=== PATIENT | female | born 1950 | race Caucasian/White ===

== ENCOUNTER 2020-03-11 08:04 | Outpatient (NON) | payer MEDICARE, SELFPAY ==
[2020-03-11 17:33] LABS: SARS-CoV-2 RNA PCR Negative
== END 2020-03-11 08:05 ==
PROVIDERS: PCP Family Medicine; Visit Provider Family Medicine
DX: R68.89 Other general symptoms and signs (principal); Z20.822 Contact with and (suspected) exposure to COVID-19
CPT/HCPCS: C9803; U0003; U0005

== ENCOUNTER 2021-11-07 05:47 | Emergency (ER) | payer MEDICARE, SELFPAY ==
--- NOTE | ~2021-11-07 | XR_ITS ---
EXAMINATION: XR chest 2V 11/07/2021 08:12 INDICATION: Weakness. Syncope. PROCEDURE: PA and lateral views of the chest COMPARISON: No prior studies for comparison. FINDINGS: The lungs are clear. The cardiomediastinal silhouette is within normal limits. There are no pleural effusions. There is no pneumothorax suspected. IMPRESSION: 1: NO ACUTE CARDIOPULMONARY DISEASE. Reviewed, dictated and finalized at location A.
[2021-11-07 06:02] VITALS: BP 157/92; PULSE 92; RESP 20; TEMP 36.9; O2SAT 100
--- NOTE | 2021-11-07 07:23 | ECG_ITS ---
Measurements Intervals [place] Rate: 75 P: 53 OH: 122 QRS: 9 QRSD: 85 T: 26 QT: 381 QTc: 428 Interpretive Statements SINUS RHYTHM ATRIAL PREMATURE COMPLEX BORDERLINE T WAVE ABNORMALITY- ANTERIOR LEADS BASELINE ARTIFACT- I, II, III, AVL, AVF, V1-V3 BORDERLINE ECG NO PREVIOUS ECG AVAILABLE FOR COMPARISON Electronically Signed On 11-07-2021 8:18:15 CDT by Thor Valencia D.O.
--- NOTE | 2021-11-07 07:40 | PC.NURSE ---
pt states she just went to the bathroom and is unable to provide a urine sample at this time.
--- NOTE | 2021-11-07 07:46 | ED.GENADULT ---
HPI - General Adult General Chief complaint: Extremity Injury, Lower Stated complaint: Fall yesterday, right leg pain Time Seen by Provider: 11/07/21 06:56 History of Present Illness HPI narrative: Patient is a 71-year-old female who presents ER to be evaluated for achiness in her right lower extremity. She reports she went to put on some socks this morning and felt a pain. It hurts with palpation and with certain movements. She is able to ambulate. No radiation. Patient reports last night she was in her kitchen when she got dizzy and almost passed out. She fell onto her buttock. She did not strike her head or lose consciousness. She thinks she injured her leg in the fall but does not member striking on anything. She does report that she has been having some dysuria. No chest pain or chest pressure. Do not feel racing of the heart. No history of arrhythmia. Related Data Allergies Allergy/AdvReac Type Severity Reaction Status Date / Time poison uriel extract Allergy Severe HIVES Verified 11/07/21 06:01 Tetanus Vaccines and Toxoid Allergy Severe HIVES Verified 11/07/21 06:01 prednisone Allergy Unknown Hives Verified 11/07/21 06:01 AVOX Allergy Severe SEVERE Uncoded 11/23/15 08:41 HIVES Review of Systems Review of Systems: All systems reviewed & are unremarkable except as noted in HPI and below Constitutional: Constitutional: Denies chills, Denies fatigue and Denies fever(s) ENT: Denies nasal congestion and Denies sore throat Cardiovascular: Cardiovascular: Denies chest pain, Denies rapid heart rate and Denies radiating jaw, neck or arm pain Respiratory: Respiratory: Denies cough and Denies dyspnea Gastrointestinal: Gastrointestinal: Denies abdominal pain, Denies nausea and Denies vomiting Musculoskeletal: Musculoskeletal: Denies arthralgias and Denies joint swelling Neurologic: Reports syncope (near syncope), Denies headache(s), Denies focal weakness and Denies numbness PMFSH Past Medical History Medical History (Updated 11/07/21 @ 09:22 by Lele Abdullahi MD) Healthy female adult Surgical History Surgical History (Updated 11/07/21 @ 07:57 by Lele Abdullahi MD) No history of previous surgery Social History Social History (Updated 11/07/21 @ 07:57 by Lele Abdullahi MD) Smoking status: Never smoker Exam Narrative: GENERAL: Well-appearing, well-nourished, and in no acute distress. HEAD: Normocephalic, atraumatic. EYES: PERRL and EOMI. ENT: Mucous membranes moist. CHEST: Clear to auscultation. No respiratory distress. HEART: Regular rate and rhythm. Normal peripheral pulses. ABDOMEN: Soft, nontender, nondistended. EXTREMITIES: Normal range of motion. No edema. Mild tenderness right lateral calf. SKIN: Warm, dry, no rash. NEURO: Alert and oriented x3. PSYCH: Normal mood and affect. Course Vital Signs Vital signs: Vital Signs Temperature 98.4 F 11/07/21 06:02 Pulse Rate 92 11/07/21 06:02 Respiratory Rate 20 11/07/21 06:02 Blood Pressure 157/92 H 11/07/21 06:02 Pulse Oximetry 100 11/07/21 06:02 Temperature 98.4 F 11/07/21 06:02 Pulse Rate 86 11/07/21 08:50 Respiratory Rate 18 11/07/21 08:04 Blood Pressure 181/100 H 11/07/21 08:50 Pulse Oximetry 97 11/07/21 08:04 Medical Decision Making Vital Signs Vital Signs: Vital Signs Temperature 98.4 F 11/07/21 06:02 Pulse Rate 92 11/07/21 06:02 Respiratory Rate 20 11/07/21 06:02 Blood Pressure 157/92 H 11/07/21 06:02 Pulse Oximetry 100 11/07/21 06:02 Temperature 98.4 F 11/07/21 06:02 Pulse Rate 86 11/07/21 08:50 Respiratory Rate 18 11/07/21 08:04 Blood Pressure 181/100 H 11/07/21 08:50 Pulse Oximetry 97 11/07/21 08:04 Lab Data Result diagrams: 11/07/21 07:43 11/07/21 07:43 Labs: Lab Results 11/07/21 11/07/21 11/07/21 Range/Units 07:43 07:43 08:45 WBC 5.7 (4.5-10.0) K/mm3 RBC 4.90 (4.2-5.4) M/mm3
--- NOTE | 2021-11-07 07:49 | PC.NURSE ---
Jane Called from Crisis and is requesting for chart to be faxed to [facility] in [place], [place] and [facility] in [place].
[2021-11-07 07:50] LABS: Basophils Percent Auto 0.3 % (0.2-1.2); Hematocrit 44.6 % (37.0-47.0); Hemoglobin 14.1 g/dL (12.0-15.0); Immature Granulocyte Absolute 0.02 K/mm3 (0.00-0.031); Immature Granulocyte Percent A 0.3 % (0-0.5); Immature Platelet Fraction Pct 3.6 % (0.9-11.2); Lymphocytes Absolute Auto 0.58 K/mm3 (0.9-3.2); Lymphocytes Percent Auto 10.1 % (18.3-44.2); Mean Corpuscular HGB Conc 31.6 g/dl (32-36); Mean Corpuscular Hemoglobin 28.8 pg (26-34); Mean Platelet Volume 11.1 fl (7.4-10.4); Monocytes Absolute Auto 0.7 K/mm3 (0.1-0.6); Monocytes Percent Auto 12.6 % (2.6-8.5); Neutrophils Absolute Auto 4.4 K/mm3 (1.3-6.7); Neutrophils Percent Auto 76.7 % (45.5-73.1); Platelet Count Result 122 k/mm3 (150-375); Red Cell Distribution Width 13.2 % (11.5-14.5); White Blood Count 5.7 K/mm3 (4.5-10.0)
[2021-11-07] MEDS: SODIUM CHLORIDE 0.9% IV 1,000 ML 999 ML IV CONT (07:59)
--- NOTE | 2021-11-07 08:01 | PC.NURSE ---
pt states she is not in any pain and is not wanting to take Tylenol.
[2021-11-07 08:04] VITALS: BP 157/63; PULSE 60; RESP 18; O2SAT 97
[2021-11-07 08:08] LABS: Anion Gap 10 mmol/L (8-16); Blood Urea Nitrogen 19 mg/dL (7-17); Calcium 9.1 mg/dL (8.4-10.2); Carbon Dioxide 26 mmol/L (22-30); Chloride 105 mmol/L (98-107); Estimated Glomerular Filt Rate 49; Glucose 113 mg/dL (65-110); Potassium 3.5 mmol/L (3.4-5.0); Sodium 141 mmol/L (137-145)
[2021-11-07 08:50] VITALS: BP 174/90; BP 176/80; BP 181/100; PULSE 77; PULSE 84; PULSE 86
[2021-11-07 08:59] LABS: Appearance Urine Slightly Cloudy (Clear); Bilirubin Urine Negative (Negative); Color Urine Yellow (Yellow); Glucose Urine UA Negative (Negative); Ketones Urine Negative (Negative); Leukocyte Esterase Ur 2+ LEU/UL (Negative); Nitrate Urine Positive (Negative); Protein Urine Negative (Negative); Urobilinogen Urine 0.2 mg/dL (<2.0)
[2021-11-07 09:02] LABS: Add Urine Microscopic? YES; Blood Urine Trace-Intact (Negative)
[2021-11-07 09:03] LABS: Bacteria Urine 2+ /hpf; Mucus Urine Few /lpf; Squamous Epithelial Cell Urine Occasional /hpf (Few); WBC Urine >75 /hpf
== END 2021-11-07 10:11 | disposition home or self-care (01) ==
PROVIDERS: Emergency Provider Emergency Medicine; PCP Family Medicine
DX: N39.0 Urinary tract infection, site not specified (principal); E86.0 Dehydration; I49.1 Atrial premature depolarization; R94.31 Abnormal electrocardiogram [ECG] [EKG]
CPT/HCPCS: 36415; 71046; 80048; 81001; 85025; 85055; 87077; 87086; 87186; 93005; 96360; 99283; J7030

== ENCOUNTER 2021-12-01 14:12 | Outpatient (CLI) | payer MEDICARE, SELFPAY ==
--- NOTE | ~2021-12-01 | XR_ITS ---
EXAM: XR knee LT 3V DATE: 12/01/2021 14:50 HISTORY: EFFUSION OF LEFT KNEE, TWISTING INJURY, RED/SWOLLEN . COMPARISON: None available. FINDINGS: Decreased mineralization. No fracture or dislocation. No lytic or blastic lesion. Mild med ial and lateral joint space narrowing. Tricompartmental osteophytosis. Small volume joint fluid. No e rosion or periosteal change. Soft tissues within normal limits. IMPRESSION: Mild tricompartmental left knee osteoarthritis. Small joint effusion. Reviewed, dictated and finalized at location K. IMPRESSION: Mild tricompartmental left knee osteoarthritis. Small joint effusio n.
== END 2021-12-01 14:13 | disposition home or self-care (01) ==
PROVIDERS: PCP Family Medicine; Visit Provider Emergency Medicine
DX: M25.462 Effusion, left knee (principal); M17.12 Unilateral primary osteoarthritis, left knee
CPT/HCPCS: 73562

== ENCOUNTER 2021-12-16 16:26 | Outpatient (CLI) | payer MEDICARE, SELFPAY ==
--- NOTE | ~2021-12-16 | MR_ITS ---
EXAMINATION: MR knee LT wo con DATE: 12/16/2021 17:38 INDICATION: Acute onset left knee pain TECHNIQUE: Magnetic resonance imaging (MRI) of the left knee was performed without intravenous contra st. Sequences included coronal PD-weighted FSE, coronal PD-weighted FS FSE, sagittal T2-weighted FSE , sagittal PD-weighted FS FSE and axial PD weighted fat saturated FSE. COMPARISON: None. FINDINGS: Medial compartment: Small radial tear involving the inner third of the medial meniscus at the junction of the body and po sterior horn. Mild diffuse partial thickness cartilage loss with smooth chondral surface along the me dial tibial plateau and anterior to central weightbearing medial femoral condyle. Lateral compartment: There is increased intrasubstance signal at the body of the lateral meniscus which does not unambiguo usly contact the articular surface to suggest tear which be most consistent with mucoid degeneration. Mild partial-thickness cartilage loss with relatively smooth chondral surface at the central weightb earing lateral femoral condyle. Patellofemoral compartment: Partial-thickness patellar cartilage loss centered along the apical ridge. There is superimposed deep fissuring with mild underlying subarticular edema-like signal change. Diffuse partial thickness cart ilage loss with smooth chondral surface along the lateral trochlea. Ligaments and tendons: Anterior and posterior cruciate ligaments are normal. The medial collateral ligament and fibular raegan ateral ligament complex are normal. Mild distal quadriceps tendinopathy without tear. Chronic mild en thesopathy with small enthesopathic ossicles at the distal patellar tendon. The visualized medial and lateral hamstring tendons as well as the iliotibial band are normal. Fluid: Physiologic amount of fluid in the joint space. No loose osteochondral bodies identified. Diffuse sub cutaneous edema about the knee and extending into the visualized proximal calf. Osseous/other: There is prominent marrow signal surrounding a horizontal low signal intensity subarticular stress ve rsus insufficiency fracture line underlying the medial tibial plateau. Additional marrow edema surrou nding a second more subtle small low signal intensity fracture line underlying the articular cortex a t the posterior most weightbearing medial femoral condyle. No pathologic marrow replacing process. IMPRESSION: 1. Incomplete subarticular stress versus insufficiency fracture lines underlying the medial tibial pl ateau with second in the smaller incomplete stress/insufficiency fracture line underlying the posteri or most weightbearing medial femoral condyle. 2. Small radial tear involving the inner third of the free edge of the medial meniscus. 3. 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 Reviewed, dictated and finalized at location B. IMPRESSION: 1. Incomplete subarticular stress versus insufficiency fracture lines underlyin g the medial tibial plateau with second in the smaller incomplete stress/insuff iciency fracture line underlying the posterior most weightbearing medial femora l condyle. 2. Small radial tear involving the inner third of the free edge of the medial m eniscus. 3. 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
== END 2021-12-16 16:27 | disposition home or self-care (01) ==
PROVIDERS: PCP Family Medicine; Visit Provider Emergency Medicine
DX: M17.12 Unilateral primary osteoarthritis, left knee (principal); S83.242A Other tear of medial meniscus, current injury, left knee, initial encounter; X58.XXXA Exposure to other specified factors, initial encounter
CPT/HCPCS: 73721

== ENCOUNTER 2022-01-04 15:35 | Outpatient (CLI) | payer MEDICARE, SELFPAY ==
[2022-01-04 16:00] LABS: Hemoglobin A1C 5.5 % (<5.7)
== END 2022-01-04 15:36 | disposition home or self-care (01) ==
LOC: ANHLAB 15:37
PROVIDERS: PCP Family Medicine; Visit Provider Emergency Medicine
DX: R73.03 Prediabetes (principal)
CPT/HCPCS: 36415; 83036

== ENCOUNTER 2022-01-14 13:51 | Outpatient (RCR) | payer MEDICARE, SELFPAY ==
--- NOTE | 2022-01-14 15:31 | PTOPEVDC ---
Assessment and note entered by Pavan Edge, PT, DPT Thank you for referring Yelena Ghosh to [facility] [place].? An evaluation has been completed. No further treatment is needed. Evaluation Information Assessment Status Evaluation Diagnosis L knee pain Subjective Information Pt states the week before Thanksgiving she fell and hurt her knee. She states her knee is doing better. She states it is not tender to palpation and she has no functional at this time. Reported Pain Level Pain Score 0: Self Report Assessment PT Clinical Summary Yelena presents to therapy today for her initial evaluation with a diagnosis of R knee pain d/t stress fracture, and tear of the medial meniscus. Today she reports no pain at rest or with activity, denies tenderness to palpation, and reports no functional limitations. She ambulates at a good gait speed and without notable deviations on a level surface, nor the stairs. She does demonstrates generalized weakness globally, she was issued a generalized HEP for wellness. Yelena does not requires skilled physical therapy services at this time and she will be discharged to continue her HEP on her own. She was instructed to follow up with her PCP if any additional concerns arise. Plan of Care PT Services Indicated No Treatment Frequency and to be discharged Duration
== END 2022-01-17 16:08 | disposition home or self-care (01) ==
LOC: ANHGOSHPT 13:51
PROVIDERS: PCP Family Medicine; Visit Provider Orthopaedic Surgery
DX: M25.562 Pain in left knee (principal); S83.249D Other tear of medial meniscus, current injury, unspecified knee, subsequent encounter; M84.30XD Stress fracture, unspecified site, subsequent encounter for fracture with routine healing
CPT/HCPCS: 97110; 97161